=== PATIENT | female | born 1995 | race Two or more races ===

== ENCOUNTER 2023-01-17 22:56 | Emergency (ER) | payer OTHER ==
[~2023-01-17] VITALS: Ht 160 cm; Wt 114.0 kg
[2023-01-18] MEDS ORDERED: AMOX-494 MT (00:13)
[2023-01-18] MEDS ORDERED: IBUP-2029 MT (00:13)
[2023-01-18 00:15] VITALS: BP 121/62
[2023-01-18] MEDS ORDERED: IBUPROFEN 600MG TABLET PO ONE (00:15)
== END 2023-01-18 00:45 | disposition home or self-care (01) ==
LOC: ER 22:56 → EDBD 22:56 → ER 01-18 00:45
DX: H66.92 Otitis media, unspecified, left ear (principal); Z98.890 Other specified postprocedural states
CPT/HCPCS: 99283